=== PATIENT | male | born 1995 | race Caucasian/White ===

== ENCOUNTER 2024-02-20 18:14 | Emergency (ER) | payer OTHER, SELFPAY ==
[2024-02-20 18:15] VITALS: BP 148/94; PULSE 83; RESP 16; TEMP 36.2; O2SAT 100; BMI 31.8
--- NOTE | 2024-02-20 18:30 | EKG12_ITS ---
Test Reason : DYSRHYTHMIA Blood Pressure : / mmHG Vent. Rate : 080 BPM Atrial Rate : 080 BPM P-R Int : 142 ms QRS Dur : 104 ms QT Int : 350 ms P-R-T Axes : 046 015 036 degrees QTc Int : 403 ms Normal sinus rhythm Normal ECG Confirmed by Richard Meza ([id number]), editor news LAYLA AGUILAR ([id number]) on 02/22/2024 9:02:52 AM Referred By: ELOY Confirmed By:Richard Meza
[2024-02-20] MEDS: Aspirin 81 MG TAB.CHEW 324 MG PO (18:34)
--- NOTE | 2024-02-20 18:35 | RAD_ITS ---
STUDY: X-RAY CHEST REASON FOR EXAM: Male, 29 years old. chest pain TECHNIQUE: AP portable COMPARISON: None. FINDINGS: There is less than optimal inspiratory effort however the lungs are clear. There is no demonstrated pleural abnormality. Normal size heart. Normal mediastinum and jean. Normal visualized pulmonary arteries. Normal visualized aortic arch and descending thoracic aorta. Normal visualized thoracic spine. Normal visualized ribs, clavicles, and shoulders. There is no demonstrated abnormality of the visualized soft tissue structures of the upper abdomen. RAD/Chest 1 View (Portable) IMPRESSION: No acute cardiopulmonary pathology Electronically Signed: Vince Reyes MD at 19:46 EDT ,
--- NOTE | 2024-02-20 18:44 | EDS_ITS ---
HPI <GUILLERMO Reina - Last Filed: 02/20/24 21:18> History of Present Illness Chief Complaint: Upper Extremity Injury Narrative Narrative: 29-year-old male was driving around 1 PM and felt like he had a muscle knot and pain in his left tricep. Pain would come and go and then he developed chest tightness. He states he is not sure if this is because he was worried about the pain in his arm because his dad and paternal uncle have a cardiac history but were heavy smokers. Patient does not smoke and has no personal cardiac history. He takes no medications. He has no history of DVT/PE or blood clots. Yesterday he carried multiple 50 pound bags of seed and did not experience chest pain. He states upon arrival to the ER the chest tightness and left arm pain have resolved. PFSH <GUILLERMO Reina - Last Filed: 02/20/24 21:18> [facility] Home Medications ?Medication ?Instructions ?Recorded ?Last Taken ?Type NK 02/20/24 Unknown History Allergy/AdvReac Type Severity Reaction Status Date / Time No Known Allergies Allergy Verified 02/20/24 18:16 Surgical History (Updated 02/20/24 @ 18:18 by Jocelyn Lin) Status post labral repair of shoulder Social History Smoking Status: Never smoker ROS <GUILLERMO Reina Last Filed: 02/20/24 21:18> ROS ED ROS Narrative Constitutional: Negative for fever, chills, malaise. CVS: Positive for chest pain. Negative for palpitations, syncope. Respiratory: Negative for shortness of breath, cough. GI: Negative for abdominal pain, nausea, vomiting. EXAM <GUILLERMO Reina Last Filed: 02/20/24 21:18> Physical Exam Narrative Exam Narrative: CONST: Patient sitting in no acute distress. EYES: Normal inspection. ENT: Normal inspection, moist mucous membranes. NECK: Normal inspection. RESP: No respiratory distress, CTAB. CVS: Regular rate and rhythm, no murmur, no gallop. SKIN: Color normal, no rash, warm, dry, intact. EXTREMITIES: Normal appearance, no pedal edema. NEURO: Alert and answering questions appropriately. PSYCH: Normal affect. Const Vital Signs: 02/20/24 18:15 Temperature 97.2 F L Temperature Source Temporal Pulse Rate 83 Respiratory Rate 16 Blood Pressure 148/94 H Blood Pressure Mean 112 Pulse Ox 100 [facility] <Lala Sen PA - Last Filed: 02/20/24 21:18> [facility] Narrative Medical decision making narrative: History gathered from: Patient and spouse Differential: Musculoskeletal pain, GERD, ACS Patient was driving and developed intermittent aching left tricep pain and chest tightness. He appears well and nontoxic. Vital signs stable. He has a normal cardiopulmonary exam. EKG is sinus rhythm at 80 bpm with no ischemic changes. Basic labs are unremarkable and two troponins are less than 3 which rules out ACS. CXR shows no acute process. He is PERC negative so I did not order D- dimer. Patient has been pain-free while here. He did report lifting heavy bags yesterday may have caused some left upper extremity musculoskeletal pain so I recommended [id number] analgesia and follow-up with his doctor. Return precautions discussed. He was discharged in stable condition. ED attending interpretation of 1 view chest x-ray shows normal heart size, no acute infiltrate edema or effusion. Lab Data Attestation: I reviewed the patient's lab results. EKG Initial EKG: Attestation: I personally reviewed and interpreted this EKG as follows: Interpretation: Sinus Rhythm and No Acute Injury Pattern Comments: Normal sinus rhythm at 80 bpm Normal intervals, no acute ischemic changes <Dr. Bandar Rock DO - Last Filed: 02/20/24 23:18> [facility] Narrative Medical decision making narrative: History gathered from: Patient and spouse Differential: Musculoskeletal pain, GERD, ACS Patient was driving and developed intermittent aching left tricep pain and chest tightness. He appears well and nontoxic. Vital signs stable. He has a normal cardiopulmonary exam. EKG is sinus rhythm at 80 bpm with no ischemic changes. Basic labs are unremarkable and two troponins are less than 3 which rules out ACS. CXR shows no acute process. He is PERC negative so I did not order D- dimer. Patient has been pain-free while here. He did report lifting heavy bags yesterday may have caused some left upper extremity musculoskeletal pain so I recommended [id number] analgesia and follow-up with his doctor. Return precautions discussed. He was discharged in stable condition. ED attending interpretation of 1 view chest x-ray shows normal heart size, no acute infiltrate edema or effusion. This patient was seen with a PA/SUPERVISOR [employer]EMENT [employer]ERKS Individually assessed they patient including history and physical. I have reviewed everything on the chart that is available and agree with the documentation provided by the PA/SUPER[employer] STATEMENT [employer]ERKS including discussion about the assessment, treatment plan, discussion, and return precautions. Patient presenting with left arm pain in the left tricep which then became chest pain and tightness. Patient admittedly thought that maybe he became anxious. He states his family has a history of early heart disease although he states that it was his father and his uncle that were not very healthy and smoked which he does not do. He states he would not physically active either. Patient has no known cardiac history. He also reports to me that he carried two 50 pound bags of seed at a time over 50 feet for a total number of 150 bags and he is carrying this in both hands. He states he did not have any chest pain when he did that. He is right-hand dominant and he does admit he could have strained his left tricep but carrying. Patient's cardiac workup was normal. Chest x-ray on my interpretation is no acute process. Radiology interpretation agrees. EKG showed a sinus rhythm at 80 bpm without sign of ischemic change. Patient was PERC negative. Troponin and delta troponin were both within normal limits. Patient discharged home in stable condition. Discharge Plan Triage Chief Complaint: Upper Extremity Injury ED Midlevel Provider: Lala Sen ED Provider: Bandar Rock Dx/Rx/DC Orders Clinical Impression: Arm pain, left, Atypical chest pain Instructions: ED Chest Pain, Noncardiac Prescriptions: No Action NK Primary Care Provider: NOT,DEFINED Referrals: NOT,DEFINED [Primary Care Provider] - Activity Restrictions/Additional Instructions: Take Tylenol or Motrin as needed and follow-up with your doctor Print Language: Turkmen Disposition Disposition: Home, Self Care Discharge Date/Time: 02/20/24 21:30
[2024-02-20 18:56] LABS: Absolute Lymphocyte Count 4.19 X10^3/uL (0.83-4.51); Absolute Neutrophil Count 4.1 X10^3/uL (2.0-7.7); Basophil# 0.04 X10^3/uL; Basophil% 0.4 % (0-1); Eosinophil# 0.06 X10^3/uL; Eosinophils% 0.7 % (0-5); Hematocrit 43.6 % (40-54); Hemoglobin 15.8 g/dL (13.0-16.5); Lymphocyte # 4.19 X10^3/ul (0.83-4.51); Lymphocyte % 45.8 % (19-41); Mean Corp Hgb Conc 36.2 g/dL (32-36); Mean Corpuscular Volume 85.7 fL (80-94); Mean Platelet Vol. 9.1 fl (6.2-12.0); Monocyte% 7.7 % (0-10); NRBC Flagged by Analyzer 0 % (0-5); Neutrophil # 4.13 X10^3/uL (2.7-7.7); Neutrophil % 45.2 % (47-70); Platelet Count 241 K/mm3 (150-450); RBC Distribution Width CV 12.4 % (11.6-14.6); RBC Distribution Width SD 38.4 fl (35.1-43.9); Red Blood Count 5.09 M/mm3 (4.6-6.2); White Blood Count 9.1 K/mm3 (4.4-11.0)
[2024-02-20 19:14] LABS: Anion Gap 4 (5-15); BUN 18 mg/dL (7-18); BUN/Creat Ratio 18.4 RATIO (10-20); Calcium,Total 9.1 mg/dL (8.5-10.1); Chloride 106 mmol/L (98-107); Creatinine, Serum 0.98 mg/dL (0.70-1.30); EST Glomerular Filtration Rate 98 mL/min (>60); Est Glom Filt Rate - Afr Amer 119 mL/min (>60); Estimated Creatinine Clearance 142.85 ml/min; Glucose 156 mg/dL (74-106); Sodium Level 139 mmol/L (136-145); Troponin-I HS (w/2H Reflex) < 3 pg/mL (3.0-78.0)
[2024-02-20 20:27] VITALS: BP 130/81; PULSE 88; RESP 18; O2SAT 96
[2024-02-20 20:39] LABS: Reflex Troponin-HS? (from REC) Y
[2024-02-20 21:13] LABS: Troponin-I HS < 3 pg/mL (3.0-78.0)
[2024-02-20 21:28] VITALS: BP 124/87; PULSE 81; RESP 16; TEMP 36.3; O2SAT 97
== END 2024-02-20 21:30 | disposition home or self-care (01) ==
PROVIDERS: Physician Assistant; Emergency Provider Student in an Organized Health Care Education/Training Program; Visit Provider Student in an Organized Health Care Education/Training Program
DX: M79.602 Pain in left arm (principal); R07.89 Other chest pain
CPT/HCPCS: 71045; 80048; 84484; 85025; 93005; 99285; A4216